=== PATIENT | male | born 1940 | race Caucasian/White ===

== ENCOUNTER 2021-02-12 17:18 | Inpatient (IN) | payer MEDICARE ==
[~2021-02-12] VITALS: Ht 182.9 cm; Wt 86.5 kg
[~2021-02-12 17:18] MED LIST: ASPIRIN 81 LOW81 MG PO; CLEARLAX PO; CRANBERRY125 MG PO; DOXYCYCL HYC100 M4 PO; HYDROXYCHLOR200 M2 PO; MEGARED OMEGA-31 CAP PO; MULTI FOR HIM PO
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
[2021-02-12] MEDS ORDERED: XARELTO10 MG PO (17:33)
[2021-02-12] MEDS ORDERED: FISH OIL500 MG PO (17:33)
[2021-02-12] MEDS ORDERED: IRON325 M1 PO (17:34)
--- NOTE | 2021-02-12 17:40 | NUR ---
AT BEDSIDE FOR LACERATION REPAIR.
--- NOTE | 2021-02-12 18:13 | NUR ---
PT TO CT VIA WC
[2021-02-12 18:25] LABS: IMMATURE GRANULOCYTES 0.7 % (0.0-5.0); MEAN CELL VOLUME 99.8 fL CALC (80.0-100.0); MEAN CORPUSCULAR HGB 32.6 pG CALC (26.0-32.0); MEAN CORPUSCULAR HGB CONC 32.7 g/dL CAL (32.0-36.0); NEUT# 7.31 thou/uL (1.82-7.42); RED BLOOD COUNT 4.29 mill/uL (4.70-6.10); RED CELL DISTRI WIDTH 13.6 % (11.5-15.5)
[2021-02-12 18:32] LABS: HEMATOCRIT 42.8 % (39.0-50.0)
[2021-02-12 18:42] LABS: INTERNATIONAL NORMALIZED RATIO 1.1 RATIO (0.7-1.3); PROTHROMBIN TIME 11.6 SECONDS (9.0-12.5)
[2021-02-12 18:59] LABS: URINE BILIRUBIN - DIPSTICK NEGATIVE (NEGATIVE); URINE BLOOD DIPSTICK LARGE (NEGATIVE); URINE GLUCOSE - DIPSTICK NEGATIVE (NEGATIVE); URINE KETONE NEGATIVE (NEGATIVE); URINE PROTEIN - DIPSTICK 100 mg/dL (NEG-TRACE); URINE SPECIFIC GRAVITY 1.025; URINE UROBILINOGEN - DIPSTICK 0.2 E.U./dL (0.2)
[2021-02-12 19:00] LABS: URINE LEUK ESTERASE MODERATE (NEGATIVE); URINE NITRITE - DIPSTICK POSITIVE (Negative)
[2021-02-12 19:01] LABS: URINE COLOR YELLOW
[2021-02-12 19:06] LABS: URINE BACTERIA MANY hpf; URINE RBC 25-50 RBC/hpf (0-5); URINE SQUAMOUS EPITHELIAL CELL MODERATE EPI/hpf (0-FEW); URINE WBC >100 WBC/hpf (0-5)
[2021-02-12 19:33] LABS: ALBUMIN 4.6 g/dL (3.2-5.0); ALKALINE PHOSPHATASE 70 u/l (38-126); ANION GAP 14 (6-22 (CALC)); BILIRUBIN, TOTAL 0.8 mg/dL (0.0-1.4); BUN 34 mg/dL (8-23); BUN/CREATININE RATIO 25 (12-20 (CALC)); CARBON DIOXIDE 25 mmol/l (22-30); CHLORIDE 104 mmol/l (95-108); CREATININE 1.4 mg/dL (0.7-1.3); GFR 49 ML/MIN (>=60 (CALC)); GFR FOR AFR.AMER. 59 ML/MIN (>=60 (CALC)); POTASSIUM 4.5 mmol/l (3.5-5.1); SGOT/AST 38 u/l (19-48); SODIUM 138 mmol/l (137-146); TOTAL PROTEIN 7.1 g/dL (6.3-8.2)
[2021-02-12 19:44] LABS: MYOGLOBIN 80 ng/mL (0 - 121)
--- NOTE | 2021-02-12 22:00 | NUR ---
REPORT TO LASHON CAMARA
--- NOTE | 2021-02-12 22:10 | NUR ---
ASSUMED CARE. AWAITING ADMISSION. AT BEDSIDE. PT IS ALERT/ORIENTED/PLEASANT. SHOULDER IMMOBILIZER INTACT. CSM + DDI TO HEAD.
--- NOTE | 2021-02-12 22:50 | NUR ---
TO FLOOR VIA W/C WITH NSG USER EXPERIENCE DEVELOPER.
--- NOTE | 2021-02-12 22:50 | NUR ---
PT RECEIVED FROM ED TO ROOM 260. ARRIVES VIA W/C ACCOMPANIED BY SUSANA OATES. PT AMBULATORY TO BED. GAIT UNSTEADY. PT C/O OF LEFT SHOULDER PAIN AT THIS TIME. ORIENTED TO UNIT, ROOM, CALL ALEXANDRE, LIGHTS, TV. ICE WATER PROVIDED. CALL ALEXANDRE WITHIN REACH. AGREES TO CALL PRN.
--- NOTE | 2021-02-12 23:00 | NUR ---
REPORT TO ANDREZ/MED SURG.
[2021-02-12 23:05] VITALS: BP 176/106
--- NOTE | 2021-02-12 23:57 | NUR ---
PHYSICAL ASSESMENT COMPLETE. PT CURRENTLY DENIES PAIN OR DISCOMFORT LONG HIS LEFT SHOULDER REMAINS IMMOBILIZED PT CLAIMS TO BE PAIN FREE. SCHEDULED MEDICATIONS AND PRN MEDICATION ADMINISTERED, SEE E-MAR. PT DENIES ANY NEEDS AT THIS TIME. PLAN OF CARE REVIEWED, PT DENIES QUESTIONS, VERBALIZES UNDERSTANDING. ITEMS WITHIN REACH, BED LOCKED IN LOW POSITION W/ BEDRAILS UP X2. CALL ALEXANDRE WITHIN REACH, AGREES TO CALL PRN.
[2021-02-13 04:00] VITALS: BP 137/85
--- NOTE | 2021-02-13 04:00 | NUR ---
PT RESTING IN BED, NO SIGNS OF DISTRESS NOTED, RESP EVEN AND UNLABORED. PT VOICES NO NEEDS OR COMPLAINTS AT THIS TIME. CALL LIGHT IN REACH, CONTINUE TO MONITOR.
[2021-02-13 08:00] VITALS: BP 154/98
--- NOTE | 2021-02-13 08:00 | NUR ---
PT WAS FOUND RESTING IN BED IN SEMI-MARCELINO'S POSITION;PT IS A&O X3;VS AND ASSESSMENT WERE COMPLETED;HEART SOUNDS ARE REGULAR IN RATE AND RHYTHM;LUNG SOUNDS ARE CLEAR;RESPIRATIONS ARE EVEN AND UNLABORED ON RA;TELE IS IN PLACE;#20G IV IN RAC IS SL, PATENT AND FREE OF COMPLICATIONS;PT HAS A LACERATION LOCATED ON HIS LEFT OCCIPITAL AREA THAT REQUIRED 5 MAKENZIE;DRESSING IN PLACE IS CDI;SAFETY PRECAUTIONS IN PLACE;CALL LIGHT WITHIN REACH;BED IN LOWEST POSITION;WILL CONTINUE TO MONITOR.
--- NOTE | 2021-02-13 10:45 | NUR ---
AND SERENA SNEED AT BEDSIDE DISCUSSING POC
[2021-02-13 10:54] VITALS: BP 107/71
--- NOTE | 2021-02-13 11:38 | NUR ---
Patient is screened for rehab intervention and it is felt that PT and ST consults are indicated if medical agrees
--- NOTE | 2021-02-13 12:00 | NUR ---
PT WAS FOUND EATING LUNCH IN BED;PT IS REPORTING PAIN 7/10 IN LEFT SHOULDER;PT WAS MEDICATED WITH ULTRAM 50MG;TELE IS IN PLACE;#20G IV IN RAC IS RUNNING NS @80ML/HR;IV SITE IS FREE OF COMPLICATIONS;SAFETY PRECAUTIONS IN PLACE;CALL LIGHT WITHIN REACH;BED IN LOWEST POSITION;WILL CONTINUE TO MONITOR.
[2021-02-13 15:00] VITALS: BP 128/76
--- NOTE | 2021-02-13 15:46 | NUR ---
PT WAS FOUND RESTING IN BED;PT REPORTS PAIN IN SHOULDER IS BETTER AFTER MEDICATION;TELE IS IN PLACE;#20G IV IN RAC IS RUNNING NS@80 ML/HR;IV SITE IS FREE OF COMPLICATIONS;SAFETY PRECAUTIONS IN PLACE;CALL LIGHT WITHIN REACH;BED IN LOWEST POSITION;WILL CONTINUE TO MONITOR.
[2021-02-13 19:15] VITALS: BP 145/87
--- NOTE | 2021-02-13 19:58 | NUR ---
PHYSICAL ASSESMENT COMPLETE. PT CURRENTLY DENIES PAIN OR DISCOMFORT. SCHEDULED MEDICATIONS AND PRN MEDICATION ADMINISTERED, SEE E-MAR. PT DENIES ANY NEEDS AT THIS TIME. PLAN OF CARE REVIEWED, PT DENIES QUESTIONS, VERBALIZES UNDERSTANDING. ITEMS WITHIN REACH, BED LOCKED IN LOW POSITION W/ BEDRAILS UP X2. CALL ALEXANDRE WITHIN REACH, AGREES TO CALL PRN.
[2021-02-14 00:03] VITALS: BP 155/88
--- NOTE | 2021-02-14 00:04 | NUR ---
PT LAYING IN BED WITH EYES CLOSED, APPEARS TO BE SLEEPING, APPEARS COMFORTABLE AND IN NO DISTRESS. RESPIRATIONS REGULAR AND UNLABORED. ITEMS REMAIN WITHIN REACH, CALL ALEXANDRE REMAINS WITHIN REACH. BED REMAINS LOCKED AND IN LOW POSITION WITH BEDRAILS UP X2. WILL CONTINUE TO MONITOR.
[2021-02-14 04:47] VITALS: BP 151/75
[2021-02-14 05:19] LABS: HEMATOCRIT 40.2 % (39.0-50.0); HEMOGLOBIN 12.7 g/dl (14.0-18.0); MEAN CELL VOLUME 104.4 fL CALC (80.0-100.0); MEAN CORPUSCULAR HGB CONC 31.6 g/dL CAL (32.0-36.0); RED BLOOD COUNT 3.85 mill/uL (4.70-6.10); RED CELL DISTRI WIDTH 13.6 % (11.5-15.5)
[2021-02-14 05:41] LABS: ALBUMIN 3.8 g/dL (3.2-5.0); ALKALINE PHOSPHATASE 81 u/l (38-126); ANION GAP 14 (6-22 (CALC)); BUN 24 mg/dL (8-23); BUN/CREATININE RATIO 24 (12-20 (CALC)); CHLORIDE 110 mmol/l (95-108); GFR > 60 ML/MIN (>=60 (CALC)); GFR FOR AFR.AMER. > 60 ML/MIN (>=60 (CALC)); POTASSIUM 4.4 mmol/l (3.5-5.1); SGOT/AST 34 u/l (19-48); SODIUM 137 mmol/l (137-146); TOTAL PROTEIN 6.2 g/dL (6.3-8.2)
[2021-02-14 05:43] LABS: CARBON DIOXIDE 17 mmol/l (22-30)
--- NOTE | 2021-02-14 07:00 | NUR ---
PT REPORT RECEIVED FROM NIGHT NURSEANDREZ.
[2021-02-14 08:00] VITALS: BP 144/85
--- NOTE | 2021-02-14 08:00 | NUR ---
PT WAS FOUND RESTING IN BED;PT IS A&O X3;VS AND ASSESSMENT WERE COMPLETED; HEART SOUNDS ARE IRREGULAR IN RATE AND RHYTHM;LUNG SOUNDS ARE CLEAR;RESPIRATIONS ARE EVEN AND UNLABORED ON RA#20G IV IN RAC IS RUNNING NS @80ML/HR;PT REPORTED SOME TENDERNESS IN THE IV SITE;IV SITE WAS FOUND TO BE INFILTRATED;IV FLUIDS WERE STOPPED AND IV REMOVED;PT WILL HAVE PICC LINE PLACED TODAY FOR CONTINUATION OF IV FLUIDS AND ANTIBIOTICS;TELE IS IN PLACE;SAFETY PRECAUTIONS IN PLACE;CALL LIGHT WITHIN REACH;BED IN LOWEST POSITION;WILL CONTINUE TO MONITOR.
--- NOTE | 2021-02-14 08:56 | NUR ---
AND MELINDA SNEED ARE AT BEDSIDE DISCUSSING POC WITH PT
--- NOTE | 2021-02-14 09:47 | NUR ---
PT WAS TRANSPORTED VIA WHEELCHAIR TO RADIOLOGY FOR PICC LINE INSERTION;JOAQUIN HELD IN ANTICIPATION OF PROCEDURE.
--- NOTE | 2021-02-14 10:30 | NUR ---
PT RETURNED FROM RADIOLOGY VIA WHEELCHAIR ACCOMPANIED BY STAFF
[2021-02-14 10:54] VITALS: BP 156/83
--- NOTE | 2021-02-14 12:00 | NUR ---
PT WAS FOUND SITTING IN BED EATING LUNCH;PT REPORTS NO PAIN AT THIS TIME;TELE IS IN PLACE;PICC LINE IN RIGHT UPPER FOREARM IS RUNNING MAXIPIME AT THIS TIME; SITE FLUSHES WELL WITH NO ISSUES OR COMPLICATIONS;SAFETY PRECAUTIONS IN PLACE;CALL LIGHT WITHIN REACH;BED IN LOWEST POSITION;WILL CONTINUE TO MONITOR.
--- NOTE | 2021-02-14 14:26 | NUR ---
BED ALARM PLACED FOR SAFETY PRECAUTIONS. CALL LIGHT LEFT WITHIN REACH.
[2021-02-14 15:10] VITALS: BP 150/79
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
[2021-02-14 19:00] VITALS: BP 135/67
--- NOTE | 2021-02-14 19:19 | NUR ---
RECEIVED REPORT FROM NURSE VICENTE PATIENT IS RESTING IN BED,WATCHING TV, BREATHING UNLABORED CALL LIGHT AT REACH.
--- NOTE | 2021-02-14 19:50 | NUR ---
PATIENT RESTING IN BED WATCHING TV, WITH ONGOING IV NS @ 80CC/HR INFUSING WELL ON DENNIS, REMAINS ON TELE AFIB 76, DENIES DIZINESS, BREATHING EVEN AND UNLABORED, PATIENT HAS A LEFT ARM SLING. DENIES PAIN AT THIS TIME STATED THAT NON IN PAIN IF ARM IS STEADY, DENIES PAIN OR BURNING ON URINATION. BED ALARM IN PLACE CALL LIGHT AT REACH.
[2021-02-15] VITALS (10 sets, daily range): BP systolic 136–183; BP diastolic 63–110
--- NOTE | 2021-02-15 00:30 | NUR ---
PATIENT APPEARS TO BE SLEEPING WITH EYES CLOSED, BREATHING EVEN UNLABORED CALL LIGHT AT REACH.
--- NOTE | 2021-02-15 03:05 | NUR ---
PATIENT ASSISTED TO THE BATHROOM, DENEIS PAIN AT THIS TIME, BREATHING UNLABORED CALL LIGHT AT REACH.
[2021-02-15 05:44] LABS: BUN 22 mg/dL (8-23); BUN/CREATININE RATIO 19 (12-20 (CALC)); CHLORIDE 107 mmol/l (95-108); CREATININE 1.2 mg/dL (0.7-1.3); GFR 58 ML/MIN (>=60 (CALC)); GFR FOR AFR.AMER. > 60 ML/MIN (>=60 (CALC)); POTASSIUM 3.9 mmol/l (3.5-5.1); SODIUM 138 mmol/l (137-146)
[2021-02-15 05:49] LABS: HEMATOCRIT 35.4 % (39.0-50.0); HEMOGLOBIN 11.5 g/dl (14.0-18.0); MEAN CELL VOLUME 99.7 fL CALC (80.0-100.0); MEAN CORPUSCULAR HGB 32.4 pG CALC (26.0-32.0); MEAN CORPUSCULAR HGB CONC 32.5 g/dL CAL (32.0-36.0); RED BLOOD COUNT 3.55 mill/uL (4.70-6.10); RED CELL DISTRI WIDTH 13.5 % (11.5-15.5)
[2021-02-15 06:03] LABS: ANION GAP 9 (6-22 (CALC)); CARBON DIOXIDE 26 mmol/l (22-30)
--- NOTE | 2021-02-15 07:00 | NUR ---
RECIEVED REPORT FROM LASHON WAYNE.
--- NOTE | 2021-02-15 07:49 | NUR ---
PT RESTING IN SEMI FOWLERS POSITION. PT IS A/O X3 WITH SOME REPORTED CONFUSION. ASESSMENT AND VITALS COMPLETED.REPSIRATIONS ARE EVEN AND UNLABORED WITH NO DISTRESS NOTED ON ROOM AIR. LUNG SOUNDS CLEAR. HEART RHYTHM IRREGULAR WITH TELE IN PLACE AFIB PER ER MONITORING. BOWEL SOUNDS ARE ACTIVE. RADIAL AND PEDAL PULSES STRONG. DENNIS PICC INFUSING WITH IVF PER ORDERM SITE APPEARS HEALTHY AND PATENT.LEFT ARM IN SLING. PT COMPLAINS OF PAIN WHEN MOVING LEFT ARM BUT REFUSES PAIN MEDICATION. LEFT SCALP LACTERATION NOTED. PT DENIES OF ANY NEEDS AT THIS TIME. ALL SAFETY PRECAUTIONS ARE IN PLACE WITH CALL LIGHT IN REACH. WILL CONTINUE TO MONITOR.
--- NOTE | 2021-02-15 08:40 | NUR ---
DR LEVIN AT BEDSIDE
--- NOTE | 2021-02-15 09:00 | NUR ---
PT NOTE Patient supine as entered room, agreed to participate in therapy session. Initiated session w/ passive range of motion to left upper extremity in supine positioning into abduction and flexion. patient able to achieve to about 90drg of range with out increased pain. progressed to sit>stand to execute standing exercises(independant w/ bed raised). patient executed scapular retractions, pendulums and table slides to patient comfort. Stand>sit (independant). Patient had no qiestions or concerns about home exercises he performed. [facility] - home
--- NOTE | 2021-02-15 10:13 | NUR ---
DR CARLOS JIMENEZ VIA [employer]
--- NOTE | 2021-02-15 10:20 | NUR ---
ORTHOSTATIC BP COMPLETED. LAYING BP 150/90, HR 69. SITTING 183/110, HR 70, STANDING 160/98, HR 70. PT STATES " I FEEL FINE." PT ASSISTED BACK INTO BED. RESPIRATIONS ARE EVEN AND UNLABORED WITH NO DISTRESS NOTED. PT DENIES OF ANY NEEDS AT THIS TIME. ALL SAFETY PRECAUTIONS REMAINS IN PLACE. WILL CONTINUE TO MONITOR.
[2021-02-15] MEDS ORDERED: MAXIPIME1 GM IV (12:16)
--- NOTE | 2021-02-15 12:24 | NUR ---
REPORTED BP OF 183/93. MILADYS LEDEZMA NOTIFIED. RESIRAATIONS REMAINS EVEN AND UNLABORED WITH NO DISTRESS NOTED. DENNIS PICC REMAINS IN PLACE, SITE REMAINS HEALTHY AND PATENT. TELE MONITORING IN PLACE. PT DENIES OF ANY PAINS OR DISCOMFORTS. ALL SAFETY PRECAUTIONS ARE IN PLACE. WILL CONTINUE TO MONITOR.
--- NOTE | 2021-02-15 12:37 | NUR ---
WRITTER INFORMED THAT PT WILL NOT BE DISCHARGED TODAY. PT AND NOTFIED.
--- NOTE | 2021-02-15 14:02 | NUR ---
NORVASC ADMINISTERED FOR ELEVTAED BP
--- NOTE | 2021-02-15 16:13 | NUR ---
PT RESTING IN SEMI FOWLERS POSITION. PT IS A/O X3. REPSIRATIONS ARE EVEN AND UNLABORED WITH NO DISTRESS NOTED ON ROOM AIR. DENNIS PICC INFUSING WITH IVF PER ORDERM, SITE APPEARS HEALTHY AND PATENT. TELE MONITORING IN PLACE. PT DENIES OF ANY PAINS OR DISCOMFORTS AT THIS TIME. ALL SAFETY PRECAUTIONSA RE IN PLACE WITH CALL LIGHT IN REACH. WILL CONTINUE TO MONITOR.
--- NOTE | 2021-02-15 19:50 | NUR ---
PATIENT RESTING IN BED AT THIS TIME-EYES ARE CLOSED. RESPS ARE EVEN AND UNLABORED. APPEARS SLEEPING AT THIS TIME. IVF NS PATENT AND INFUSING VIA RIGHT UPPER ARM PICC AT 80CC/HR. SITE APPEARS HEALTHY AT THIS TIME. CALL LIGHT IN REACH. WILL CONT TO MONITOR.
--- NOTE | 2021-02-15 21:24 | NUR ---
PATIENT REARING IN BED AT THIS TIME-AWAKE ALERT AND ORIENTEDX3. PATIENT WITH IVF PATENT AND INFUSING VIA RIGHT UPPER ARM PICC AT 80CC/HR. MAXIPIME HUNG ORDERED. TELE MONITOR IN PLACE. SLING APPLIED TO LEFT ARM ORDERED. CMS TO LEFT FINGERS ARE WNL. PAIN MEDICATTION OFFERED BUT PATIENT DECLINED AT THIS TIME. MAKENZIE TO HEAD INTACT AND TEXTILE BAG SEWER. OFFERED HS SNACK BUT PATIENT DECLINED AT THIS TIME. SAFETY PRECAUTIONS REINFORCED. CALL LIGHT IN REACH. WILL CONT TO MONITOR.
[2021-02-16 00:13] VITALS: BP 127/74
--- NOTE | 2021-02-16 01:33 | NUR ---
PATIENT ASSISTED UP TO THE BR FOR BM. PATIENT IS ALSO VOIDING QS YELLOW URINE. ASSISTED BACK TO BED. PATIENT WITH SLING TO LEFT ARM REMAINING IN PLACE. CMS TO LEFT FINGERS WNL. IVF NS PATENT AND INFUSING VIA RIGHT U PPER ARM PICC AT 80CC/HR. TELE MONITOR REMAINS IN PLACE. SAFETY PRECAUTIONS REINFORCED. CALL LIGHT IN REACH. WILL CONT TO MONITOR.
[2021-02-16 04:39] VITALS: BP 142/80
--- NOTE | 2021-02-16 05:00 | NUR ---
PATIENT RESTING IN BED-APPEARS SLEEPING WITH EYES CLOSED. RESPS ARE EVEN AND UNLABORED. LAB WORK DRAWN FROM RIGHT UPPER ARM PICC WITHOUT DIFFICULTY-GOOD BLOOD RETURN. FLUSHED WITH SALINE AND HEP SOLUTION PER PROTOCOL. IVF NS PATENT AND INFUSING AT 80CC/HR. SAFETY PRECAUTION REINFORCED. CALL LIGHT IN REACH. WILL CONT TO MONITOR.
[2021-02-16 05:42] LABS: HEMATOCRIT 34.1 % (39.0-50.0); HEMOGLOBIN 11.2 g/dl (14.0-18.0); MEAN CELL VOLUME 100.3 fL CALC (80.0-100.0); MEAN CORPUSCULAR HGB 32.9 pG CALC (26.0-32.0); MEAN CORPUSCULAR HGB CONC 32.8 g/dL CAL (32.0-36.0); RED BLOOD COUNT 3.4 mill/uL (4.70-6.10); RED CELL DISTRI WIDTH 13.4 % (11.5-15.5)
[2021-02-16 06:02] LABS: ANION GAP 10 (6-22 (CALC)); BUN 20 mg/dL (8-23); BUN/CREATININE RATIO 19 (12-20 (CALC)); CARBON DIOXIDE 25 mmol/l (22-30); CHLORIDE 107 mmol/l (95-108); CREATININE 1.1 mg/dL (0.7-1.3); GFR > 60 ML/MIN (>=60 (CALC)); GFR FOR AFR.AMER. > 60 ML/MIN (>=60 (CALC)); POTASSIUM 3.8 mmol/l (3.5-5.1); SODIUM 138 mmol/l (137-146)
--- NOTE | 2021-02-16 07:00 | NUR ---
RECIEVED REPORT FROM LASHON JIMENEZ
[2021-02-16 07:15] VITALS: BP 155/87
--- NOTE | 2021-02-16 07:42 | NUR ---
PT SITTING UP IN CHAIR. PT IS A/O X3 WITH SOME REPORTED CONFUSION.ASSESSMENT AND VITALS OBATINED. BP 155/87, HR 87, O2 97% ON ROOM AIR. RESPIRATIONS ARE EVEN AND UNLABORED WITH NO DISTRESS NOTED. LUNG SOUNDS ARE CLEAR. HEART RHYTHM IS NORMAL WITH TELE IN PLACE. BOWEL SOUNDS ARE ACTIVE. RADIAL AND PEDAL PULSES ARE STRONG. DENNIS PICC INFUSING WITH IVF PER ORDER, SITE REMAINS HEALTHY AND PATENT. SKIN IS COOL AND DRY. 5 MAKENZIE NOTED ON LEFT SCALP. LEFT ARM IN SLING, ADJUSTED FOR PT COMFORT. PT COMPLAINS OF SOME DISCOMFORT IN LEFT SHOULDER BUT REFUSES PAIN MEDICATION. PT DENIES OF ANY OTHER NEEDS AT THIS TIME. ALL SAFETY PRECAUTIONS ARE IN PLACE WITH CALL LIGHT IN REACH. ENCOURAGED PT TO CALL FOR ASSISTANCE. WILL CONTINUE TO MONITOR.
--- NOTE | 2021-02-16 08:39 | NUR ---
MORNING MEDS ADMNISTERED. PT TOLERATED WELL. PT REQUEST FOR PAIN PILL AT THIS TIME, ULTRAM ADMINISTERED. PT DENEIS OF ANY OTHER NEEDS. ALL SAFETY PRECAUTIONS IN PLACE. WILL CONTINUE TO MONITOR.
--- NOTE | 2021-02-16 09:07 | NUR ---
DR VALE AT BEDSIDE.
[2021-02-16] MEDS ORDERED: AMLODIPINE BESYL5 MG PO (10:21)
[2021-02-16 10:23] VITALS: BP 146/76
[2021-02-16] MEDS ORDERED: ULTRAM50 M1 PO (10:24)
[2021-02-16 10:25] VITALS: BP 146/76
--- NOTE | 2021-02-16 11:38 | NUR ---
PT REQUEST TO SHOWER BEFORE BEING DISCHARGED. PT SET UP FOR SHOWER. PT ASSSISTED TO SHOWER. ALL SAFETY PRECAUTIONS ARE IN PLACE, ENCOURAGED PT TO CALL FOR ASSISTNACE. WILL CONTINUE TO MONITOR.
--- NOTE | 2021-02-16 13:02 | NUR ---
Discharge instructions given. Patient verbalizes understanding of same. Discharged in stable condition via Wheelchair to Home with staff. All belongings sent with pt. PT DISCHARGED HOME VIA WHEELCHAIR IN STABLE CONDITION ACCOMPAINED BY STAFF AND SPOUSE IN STABLE CONDITION WITH ALL DISCHARGE INSTRUCTIONS AND BELONGINGS. [facility] PICC REMAINS IN PLACE.
== END 2021-02-16 13:03 | DRG 690 ==
LOC: ED 17:18 → ED-I 21:10 → ED 22:27 → MS2 22:28
PROVIDERS: Emergency Medicine; Nurse Practitioner; Nurse Practitioner Family; ADMIT Internal Medicine; ATTEND Internal Medicine
PROC: 0HQ0XZZ Repair Scalp Skin, External Approach (ICD-10-PCS; principal; 2021-02-12)
PROC: 02HV33Z Insertion of Infusion Device into Superior Vena Cava, Percutaneous Approach (ICD-10-PCS; 2021-02-14)
PROC: B518ZZA Fluoroscopy of Superior Vena Cava, Guidance (ICD-10-PCS; 2021-02-14)
DX: N39.0 Urinary tract infection, site not specified (principal); C85.90 Non-Hodgkin lymphoma, unspecified, unspecified site; I10 Essential (primary) hypertension; E86.0 Dehydration; I48.91 Unspecified atrial fibrillation; S43.112A Subluxation of left acromioclavicular joint, initial encounter; S01.01XA Laceration without foreign body of scalp, initial encounter; R41.0 Disorientation, unspecified; B96.5 Pseudomonas (aeruginosa) (mallei) (pseudomallei) as the cause of diseases classified elsewhere; W18.30XA Fall on same level, unspecified, initial encounter; Y92.009 Unspecified place in unspecified non-institutional (private) residence as the place of occurrence of the external cause; Z79.01 Long term (current) use of anticoagulants; Z87.440 Personal history of urinary (tract) infections; Z92.21 Personal history of antineoplastic chemotherapy; Z86.73 Personal history of transient ischemic attack (TIA), and cerebral infarction without residual deficits; Z20.822 Contact with and (suspected) exposure to COVID-19
CPT/HCPCS: G0378; J0692; Q3014

== ENCOUNTER 2021-12-15 12:26 | Emergency (ER) | payer MEDICARE ==
[~2021-12-15] VITALS: Ht 182.9 cm; Wt 88.0 kg
[~2021-12-15 12:26] MED LIST changes: +AMLODIPINE BESYL5 MG PO; +FISH OIL500 MG PO; +IRON325 M1 PO; +MAXIPIME1 GM IV; +ULTRAM50 M1 PO; +XARELTO10 MG PO
[2021-12-15] MEDS ORDERED: MAXZIDE-2537.5 MG/TA PO (15:15)
[2021-12-15 17:49] LABS: HEMATOCRIT 43.9 % (39.0-50.0); HEMOGLOBIN 14.8 g/dl (14.0-18.0); IMMATURE GRANULOCYTES 0.2 % (0.0-5.0); MEAN CELL VOLUME 100.9 fL CALC (80.0-100.0); MEAN CORPUSCULAR HGB CONC 33.7 g/dL CAL (32.0-36.0); NEUT# 3.73 thou/uL (1.82-7.42); RED BLOOD COUNT 4.35 mill/uL (4.70-6.10); RED CELL DISTRI WIDTH 12.9 % (11.5-15.5)
[2021-12-15 18:11] LABS: ANION GAP 12 (6-22 (CALC)); BUN 23 mg/dL (8-23); BUN/CREATININE RATIO 20 (12-20 (CALC)); CARBON DIOXIDE 29 mmol/l (22-30); CHLORIDE 104 mmol/l (95-108); CREATININE 1.2 mg/dL (0.7-1.3); GFR 58 ML/MIN (>=60 (CALC)); GFR FOR AFR.AMER. > 60 ML/MIN (>=60 (CALC)); POTASSIUM 4.2 mmol/l (3.5-5.1); SODIUM 141 mmol/l (137-146)
[2021-12-15 18:25] VITALS: BP 176/82
== END 2021-12-15 19:01 | disposition home or self-care (01) ==
LOC: ED 12:26
PROVIDERS: Family Medicine
DX: I10 Essential (primary) hypertension (principal); Z86.73 Personal history of transient ischemic attack (TIA), and cerebral infarction without residual deficits

== ENCOUNTER 2022-12-29 10:13 | Emergency (ER) | payer MEDICARE ==
[~2022-12-29] VITALS: Ht 182.9 cm; Wt 88.4 kg
[~2022-12-29 10:13] MED LIST changes: +MAXZIDE-2537.5 MG/TA PO
[2022-12-29 10:24] VITALS: BP 131/87
[2022-12-29 10:31] VITALS: BP 155/91
[2022-12-29] MEDS ORDERED: NAPROXEN500 MG PO (12:45)
[2022-12-29] MEDS ORDERED: TRAMADOL HYDROC50 M1 PO (12:45)
[2022-12-29 12:59] VITALS: BP 155/91
== END 2022-12-29 13:08 | disposition home or self-care (01) ==
LOC: ED 10:13
DX: M54.50 Low back pain, unspecified (principal); M51.36 Other intervertebral disc degeneration, lumbar region; I10 Essential (primary) hypertension; Z86.73 Personal history of transient ischemic attack (TIA), and cerebral infarction without residual deficits

== ENCOUNTER 2025-01-08 02:06 | Observation (INO) | payer MEDICARE ==
[2025-01-08] VITALS (16 sets, daily range): BP systolic 130–164; BP diastolic 73–93
[~2025-01-08] VITALS: Ht 182.9 cm; Wt 90.9 kg
[~2025-01-08 02:06] MED LIST changes: +CIPROFLOXACN500 MG PO; +NAPROXEN500 MG PO; +OMNICEF300 MG PO; +TRAMADOL HYDROC50 M1 PO
[2025-01-08] MEDS ORDERED: hydrALAZINE HCL 20 MG/ML VIAL(1 ML) IV ONE ×2 (02:15→02:20)
[2025-01-08 02:26] LABS: BASO% 0.9 % (0-3); EOS% 3.6 % (0-8); HEMATOCRIT 40.7 % (39.0-50.0); HEMOGLOBIN 13.4 g/dl (14.0-18.0); IMMATURE GRANULOCYTES 0.2 % (0.0-5.0); LYMPH% 14.3 % (15-41); MEAN CELL VOLUME 99.8 fL CALC (80.0-100.0); MEAN CORPUSCULAR HGB 32.8 pG CALC (26.0-32.0); MEAN CORPUSCULAR HGB CONC 32.9 g/dL CAL (32.0-36.0); MONO% 14.9 % (2-13); NEUT# 2.97 thou/uL (1.82-7.42); NEUT% 66.1 % (42-76); RED BLOOD COUNT 4.08 mill/uL (4.70-6.10); RED CELL DISTRI WIDTH 14.4 % (11.5-15.5)
--- NOTE | 2025-01-08 02:28 | NUR ---
PT MEDICATED PER MD ORDERS. PT / PT FAMILY UPDATED ON POC, PT AWAITNG FOR LAB RESULTS AT THIS TIME AND CT SCAN/CXR. PT / PT FAMILY VOICES UNDERSTANDING WITH NO FURTHER QUESTIONS OR CONCERNS.
[2025-01-08 02:42] LABS: ALBUMIN 4.1 g/dL (3.2-5.0); ALKALINE PHOSPHATASE 52 u/l (38-126); ANION GAP 11 (6-22 (CALC)); BILIRUBIN, TOTAL 1.2 mg/dL (0.2-1.3); BUN 26 mg/dL (8-23); BUN/CREATININE RATIO 18 (12-20 (CALC)); CARBON DIOXIDE 25 mmol/l (22-30); CHLORIDE 106 mmol/l (95-108); CPK 39 u/l (55-170); CREATININE 1.5 mg/dL (0.7-1.3); ESTIMATED GFR 45 ML/MIN (>=90 (CALC)); ETHYL ALCOHOL 0 mg/dl (0-30); LIPASE 44 u/l (23-300); MAGNESIUM 2.3 mg/dL (1.6-2.3); POTASSIUM 3.8 mmol/l (3.5-5.1); SGOT/AST 27 u/l (19-48); SODIUM 138 mmol/l (137-146); TOTAL PROTEIN 6.2 g/dL (6.3-8.2)
--- NOTE | 2025-01-08 03:24 | NUR ---
PT / PT FAMILY UPDATED ON POC, PT AWAITING FOR RAD AND LAB RESULTS AT THIS TIME. PT / PT FAMILY VOICE UNDERSTANDING WITH NO FURTHER QUESTIONS OR CONCERNS. PT CALL LIGHT WITHIN REACH.
[2025-01-08] MEDS ORDERED: PEPCID40 MG PO (03:40)
[2025-01-08] MEDS ORDERED: LATANOPROST0.005 % OD (03:40)
[2025-01-08 04:05] LABS: URINE BILIRUBIN - DIPSTICK Negative (NEGATIVE); URINE GLUCOSE - DIPSTICK Negative (NEGATIVE); URINE KETONE Negative (NEGATIVE); URINE PH 5.5 (4.5-8.0); URINE PROTEIN - DIPSTICK Negative (NEG-TRACE); URINE SPECIFIC GRAVITY <=1.005; URINE UROBILINOGEN - DIPSTICK 0.2 E.U./dL (0.2)
[2025-01-08 04:08] LABS: URINE BLOOD DIPSTICK Negative (NEGATIVE); URINE COLOR Yellow; URINE LEUK ESTERASE Small (NEGATIVE); URINE NITRITE - DIPSTICK Positive (Negative)
[2025-01-08 04:11] LABS: URINE BACTERIA MODERATE hpf; URINE EPITHELIAL CELLS MODERATE EPI/hpf (0-FEW)
--- NOTE | 2025-01-08 06:00 | NUR ---
PATIENTS REPORTS REPORTS PATIENT HAS RESPOSNDED POSITIVELY TO DOXYCICLINE, ASKED EDP IF HE WOULD LIKE BLOOD CULTURES PRIOR TO ABX TREATMENT AND EDP STATES NO. ONLY URINE.
[2025-01-08] MEDS ORDERED: ONDANSETRON HCl 4 MG/2 ML SDV IV PRN (06:55)
[2025-01-08] MEDS ORDERED: IBUPROFEN 800 MG/TAB PO PRN (06:55)
[2025-01-08] MEDS ORDERED: Polyethylene Glycol 3350 17 GM/PKT PO PRN (06:55)
[2025-01-08] MEDS ORDERED: FAMOTIDINE 10MG/ML 2ML SDV IV PRN (06:55)
[2025-01-08] MEDS ORDERED: ALUM & MAG HYDROX-SIMETHICONE 30 ML PO PRN (06:55)
[2025-01-08] MEDS ORDERED: ONDANSETRON 4 MG/TAB ODT PO PRN (06:55)
--- NOTE | 2025-01-08 07:00 | NUR ---
REPORT RECEIVED FROM ROBLES OATES
[2025-01-08] MEDS ORDERED: XARELTO20 MG PO (07:52)
[2025-01-08] MEDS ORDERED: DOXYCYCLINE HYCLATE 100 MG in SODIUM CHLORIDE 0.9% 100 ML IV SCH (08:00)
[2025-01-08 08:07] LABS: BASO% 0.4 % (0-3); EOS% 2.1 % (0-8); HEMATOCRIT 42.2 % (39.0-50.0); HEMOGLOBIN 14.1 g/dl (14.0-18.0); IMMATURE GRANULOCYTES 0.2 % (0.0-5.0); LYMPH% 10.6 % (15-41); MEAN CELL VOLUME 98.1 fL CALC (80.0-100.0); MEAN CORPUSCULAR HGB 32.8 pG CALC (26.0-32.0); MEAN CORPUSCULAR HGB CONC 33.4 g/dL CAL (32.0-36.0); MONO% 12.9 % (2-13); NEUT# 3.49 thou/uL (1.82-7.42); NEUT% 73.8 % (42-76); RED BLOOD COUNT 4.3 mill/uL (4.70-6.10); RED CELL DISTRI WIDTH 14.3 % (11.5-15.5)
--- NOTE | 2025-01-08 08:16 | NUR ---
REPORT CALLED TO KAREN OATES
--- NOTE | 2025-01-08 08:52 | NUR ---
TO MED SURG VIA WHEELCHAIR. TELE MONITOR #[address], ACCOMPANIED BY . ALL PERSONAL BELONGINGS WITH PT
[2025-01-08] MEDS ORDERED: FAMOTIDINE 20 MG/TAB PO SCH (09:00)
--- NOTE | 2025-01-08 09:35 | NUR ---
PT IS ADMITTED TO MED SURG FOR WEAKNESS, POSSIBLE FALL, AND A REOCCURING UTI. PT IS A&O X3 AT THIS TIME BUT CAN BECOME CONFUSED AT NIGHT. , MARAH ([phone]) IS AT BEDSIDE. PT IS STABLE. PT IS ON TELE; PACED WITH [employer] MICRO IN THE L VENTRICLE. PT IS NOT ON OXYGEN. PT CAN MOVE ALL EXTREMITES BUT IS SLIGHTLY WEAK; X1 OOB. PLAN OF CARE WAS REVIEWED; NO FURTHER QUESTIONS AT THIS TIME. BED ALARM IS ON; CALL LIGHT IS WITHIN REACH.
[2025-01-08] MEDS ORDERED: SODIUM CHLORIDE 0.9% 1,000 ML IV PRN (10:10)
--- NOTE | 2025-01-08 12:00 | NUR ---
PT'S CONDITION REMAINS THE SAME. PT IS EATING LUNCH COMFORTABLY. BED ALARM IS ON; CALL LIGHT WITHIN REACH.
[2025-01-08] MEDS ORDERED: amLODIPine BESYLATE 5 MG/TAB PO SCH (14:30)
--- NOTE | 2025-01-08 16:00 | NUR ---
PT COMPLAINS OF A LITTLE HEADACHE; WILL MEDICATE. PT IS STILL A&O X3 AND STABLE. BED ALARM IS ON; CALL LIGHT IS WITHIN REACH.
[2025-01-08] MEDS ORDERED: RIVAROXABAN 20 MG TAB PO SCH (17:00)
--- NOTE | 2025-01-08 19:22 | NUR ---
PATIENT OBSERVED TO BE RESTING IN BED AWAKE WATCHING TV. BEDSIDE ASSESSMENT COMPLETE. PATIENT CAN MAKE NEEDS KNOWN, NONE NEEDED AT THIS TIME. NO COMPLAINTS OF PAIN AT THIS TIME. RESP EVEN AND UNLABORED, NO VISUAL SIGNS OF DISTRESS. IV SITE CLEAN AND INTACT. BOWEL SOUNDS IN ALL 4 QUADRENTS. PATIENT OBSERVED TO HAVE LOWER LEGS EDEMA PITTING +1. BRD AT LOWEST POSITION. CALL LIGHT WITH IN REACH.
[2025-01-08] MEDS ORDERED: LATANOPROST 2.5 ML BTL OU SCH (21:00)
[2025-01-09] VITALS (9 sets, daily range): BP systolic 126–157; BP diastolic 60–98
--- NOTE | 2025-01-09 00:36 | NUR ---
PATIENT OBSERVED TO BE RESTING IN BED. PATIENT RESPONDS TO VERBAL STIMULI. NO COMPLAINTS OF PAIN AT THIS TIME. EQUAL UNLABORED RESP. NO VISUAL SIGNS OF DISTREAA. BED AT LOWEST POSITION. CALL LIGHT WITH IN REACH.
--- NOTE | 2025-01-09 04:20 | NUR ---
PATIENT OBSERVED TO BE SITTING ON SIDE OF BED. PATIENT OBSERVED TO BE REMOVING TELE BOX. I ASKED PATIENT WHATS GOING ON. PATIENT STATED" WHERE AM I." I SAID YOU ARE AT THE HOSPITAL. PATIENT STATED" WELL IM TRYING TO GET OUT OF HERE". PATIENT OBSERVED TO BE TRYING TO GET UP. I REDIRECTED PATIENT TO LAY DOWN AND TO WAIT TO SEE THE DR. PATIENT STATED" OK FINE". BED AT LOWEST POSITION. CALL LIGHT WITH IN REACH.
[2025-01-09 05:40] LABS: BASO% 0.4 % (0-3); EOS% 2.1 % (0-8); HEMATOCRIT 40.6 % (39.0-50.0); HEMOGLOBIN 13.8 g/dl (14.0-18.0); IMMATURE GRANULOCYTES 0.2 % (0.0-5.0); LYMPH% 12.8 % (15-41); MEAN CELL VOLUME 99.3 fL CALC (80.0-100.0); MEAN CORPUSCULAR HGB 33.7 pG CALC (26.0-32.0); MONO% 12.6 % (2-13); NEUT# 3.43 thou/uL (1.82-7.42); NEUT% 71.9 % (42-76); RED BLOOD COUNT 4.09 mill/uL (4.70-6.10); RED CELL DISTRI WIDTH 14.2 % (11.5-15.5)
[2025-01-09 05:48] LABS: ALBUMIN 3.8 g/dL (3.2-5.0); CREATININE 1.2 mg/dL (0.7-1.3); MAGNESIUM 2.2 mg/dL (1.6-2.3); TOTAL PROTEIN 5.7 g/dL (6.3-8.2)
--- NOTE | 2025-01-09 07:45 | NUR ---
PT WAS FOUND CONFUSED AT BEDSIDE. STATES THIS ISNT ABNORMAL FOR HIM. PATIENT IS STABLE AND AWAITING BREAKFAST. PT IS ABLE TO MOVE ALL EXTREMITES; X1 OOB FOR WEAKNESS. PLAN OF CARE WAS REVIEWED WITH PT; NO FURTHER QUESTIONS AT THIS TIME. CALL LIGHT IS WITHIN REACH AND BED ALARM IS ON.
--- NOTE | 2025-01-09 12:00 | NUR ---
PT'S CONDITION REMAINS THE SAME; STILL SOMEWHAT DISORIENTED. IS AT BEDSIDE. BED ALARM IS ON; CALL LIGHT IS WITHIN REACH.
--- NOTE | 2025-01-09 15:00 | NUR ---
PT'S CONDITION REMAINS THE SAME. REMAINS AT BEDSIDE. BED ALARM IS ON; CALL LIGHT WITHIN REACH.
--- NOTE | 2025-01-09 20:00 | NUR ---
RECEIVED REPORT FROM NURSE KAREN, PATIENT RESTING IN BED, PATIENT CONFUSED, ALERT ONLY TO NAME AND BIRTHDAY,PATIENT STATED THAT HE IS AT THE [facility], PATIENT SETS OF BED ALARM FREQUENTLY, GAIT UNSTEADY, PATIENT DOES NOT USE CALL LIGHT, EDUCATED, PATIENT ONGOING IV ON LAC G 20 NS @ 100CC/HR INFUSING WELL, PATIENT ASSISTED TO THE BEDSIDE COMODE VOIDED AND ASSISTED BACK IN BED, SAFETY PRECAUTION IN PLACED, CALL LIGHT WITHIN REACHED.
[2025-01-09] MEDS ORDERED: Zaleplon 5 MG/CAP PO PRN (22:05)
[2025-01-09] MEDS ORDERED: QUEtiapine FUMERATE 25 MG/TAB PO SCH (22:14)
--- NOTE | 2025-01-10 | NUR ---
PATIENT RESTING IN BED, BREATGHING EVEN UNALBORED, NOT IN DISTRESS, SAFETY PRECAUTION IN PLACED.
[2025-01-10 01:02] VITALS: BP 130/71
--- NOTE | 2025-01-10 03:34 | NUR ---
PATIENT RSETING IN BED, EYES CLOSED, BREATHING EVEN UNALBORED, NO DISCOMFORTS NOTED AT THSI TIME, BED ALARM IN PLACED.
[2025-01-10 04:14] LABS: BASO% 0.7 % (0-3); HEMATOCRIT 38.3 % (39.0-50.0); HEMOGLOBIN 12.7 g/dl (14.0-18.0); IMMATURE GRANULOCYTES 0.2 % (0.0-5.0); LYMPH% 14.3 % (15-41); MEAN CELL VOLUME 100.3 fL CALC (80.0-100.0); MEAN CORPUSCULAR HGB 33.2 pG CALC (26.0-32.0); MEAN CORPUSCULAR HGB CONC 33.2 g/dL CAL (32.0-36.0); MONO% 10.7 % (2-13); NEUT# 2.91 thou/uL (1.82-7.42); NEUT% 69.1 % (42-76); RED BLOOD COUNT 3.82 mill/uL (4.70-6.10); RED CELL DISTRI WIDTH 14.2 % (11.5-15.5)
[2025-01-10 04:29] LABS: ALBUMIN 3.6 g/dL (3.2-5.0); BILIRUBIN, TOTAL 1.1 mg/dL (0.2-1.3); CREATININE 1.1 mg/dL (0.7-1.3); MAGNESIUM 2.1 mg/dL (1.6-2.3); POTASSIUM 3.8 mmol/l (3.5-5.1); TOTAL PROTEIN 5.5 g/dL (6.3-8.2)
[2025-01-10 04:54] VITALS: BP 149/89
[2025-01-10 07:52] VITALS: BP 163/83
--- NOTE | 2025-01-10 08:01 | NUR ---
PATEINT RESTING IN BED SLEEPING SHOWING NO DISTRESS. SKIN INTACT AND IV SITE INTACT
--- NOTE | 2025-01-10 13:34 | NUR ---
PATIENT STILL CONFUSED . RESTING IN BED WITH FAIMLY AT BED SIDE . TOLERATING IV TX WELL NO /C/O PAIN
[2025-01-10 15:14] VITALS: BP 133/67
--- NOTE | 2025-01-10 16:00 | NUR ---
PATIENT IS RESTING IN BEDD WITH AT BED SIDE HAS A SITTER WITH HIM . DID MUCH BETTER TODAY
--- NOTE | 2025-01-10 18:50 | NUR ---
PATIENT OBSERVED RESTING IN BED. ALERT AND ABLE TO MAKE NEEDS KNOWN. ASSESSMENT COMPLETE. NO DISTRESS NOTED. NO COMPLAINTS VOICED. ANSWERS APPROPRIATELY. DENIES NEEDING ANYTHING AT THIS TIME. BED IN LOW POSITION. CALL ALEXANDRE IN REACH. SITTER AT BEDSIDE FOR SAFETY.
[2025-01-10 18:55] VITALS: BP 159/89
--- NOTE | 2025-01-11 | NUR ---
PATIENT REMAINS RESTING IN BED WITH HOB ELEVATED. NO SIGNS OF DISTRESS OR PAIN. BED IN LOW POSITION. CALL ALEXANDRE IN REACH. SITTER REMAINS IN ROOM FOR SAFETY.
[2025-01-11 00:16] VITALS: BP 150/88
--- NOTE | 2025-01-11 03:51 | NUR ---
PATIENT REMAINS RESTING IN BED. NO DISTRESS NOTED. DENIES NEEDING ANYTHING AT THIS TIME. BED REMAINS IN LOW POSITION. CALL ALEXANDRE IN REACH. SITTER REMAINS AT BEDSIDE FOR SAFETY.
[2025-01-11 04:00] VITALS: BP 145/79
--- NOTE | 2025-01-11 05:56 | NUR ---
PATIENT WITH URINE OUTPUT TOTAL OF 150CC THIS SHIFT. NO COMPLAINTS OF DISCOMFORT. BLADDER SCANNED SHOWING GREATER THEN >600. PER PATIENT HE VOICED THAT HE IS SUPPOSED TO BE SELF CATHING TWICE A DAY BUT HASNT BECAUSE HE DOESNT WANT TOO. I MENTIONED TO PATIENT THAT WE MIGHT NEED TO GET ORDERS FROM PROVIDER TO CATH AND PATIENT REFUSED MULTIPLE TIMES WITH LPN OR MEDICAL ASSISTANT PRESENT TO HEAR. PATIENT WAS EDUCATED ON THE IMPORTANCE OF NOT HAVING A FULL BLADDER BUT STILL REFUSES AND VOICED HE WANTS TO RETRY VOIDING AGAIN SHORTLY ON HIS OWN. I DID CALL AND INFORM THE CANVASSING MANAGER WELL. I WILL UPDATE THE DAYSHIFT NURSE AND ALSO HAVE PROVIDER MADE AWARE.
--- NOTE | 2025-01-11 06:48 | NUR ---
NOTIFIED MD OF PATIENT RETAINING URINE AND WHAT BLADDER SCAN SHOWED. I ALSO INFORMED MD THAT PATIENT DOESNT WANT ANY TYPE OF CATHING DONE AT THIS TIME. MD VOICED HE WOULD SPEAK TO PATIENT.
[2025-01-11 07:35] VITALS: BP 153/90
--- NOTE | 2025-01-11 09:00 | NUR ---
PT ASSISTED WITH STRAIGHT CATH, 450CC CLEAR YELLOW URINE DRAINED FROM BLADDER, PT TOLERATED WELL, PT ASSISTED TO THE RECLINER AFTER, PT AMBULATED WITH A SLOW UNSTEDAY GAIT, SAFETY MEASURES REINFORCED, PT REMINDED TO CALL FOR ASSISTANCE, PT VERBALIZED UNDERSTANDING, CALL ALEXANDRE WITHIN REACH
[2025-01-11] MEDS ORDERED: AMLODIPINE BESYL5 MG PO (09:41)
[2025-01-11 11:14] VITALS: BP 125/74
--- NOTE | 2025-01-11 12:00 | NUR ---
PT SITTING IN THE RECLINER EATING LUNCH WITH , NO S/S OF DISTRESS AT THIS TIME, PT REMINDED TO CALL FOR ASSISTANCE, PT VERBALIZED UNDERSTANDING, CALL ALEXANDRE WITHIN REACH
--- NOTE | 2025-01-11 15:55 | NUR ---
SPOKE WITH JENA IN ADMISSIONS AT [facility] WILL HAVE A BED TOMORROW NOT TODAY. INFORMED DR HARRY RE: STATUS
[2025-01-11 16:03] VITALS: BP 175/98
[2025-01-11 18:44] VITALS: BP 159/89
--- NOTE | 2025-01-11 20:00 | NUR ---
RECEIVED REPORT FROM NURSE TORY, PATIENT ALERT TO NAME AND BIRTHDAY, STATED HE WAS AT [facility], PATIENT REORINETED, PLEASANT, IV INFUSING WELL ON LAC NS @ 100CC/HR, CLEAR LUNG SOUNDS, ON TELEMETRY, ACTIVE BOWEL SOUNDS, EDEMA NOTED +1 ON BILAT FOOT, OFFLOADED, MD AWARE, NEW ORDER TO DISCONTINUE FLUIDS, CALL LIGHT IN REACHED, SITTER AT BEDSIED FOR SAFETY.
--- NOTE | 2025-01-11 20:43 | NUR ---
PATIENT STRAIGHT CATH DONE, DRAINED 500CC CLEAR YELLOW URINE.
[2025-01-12] VITALS: BP 155/80
--- NOTE | 2025-01-12 | NUR ---
PATIENT RESTING IN BED, BREATHING UNLABORED, NOT IN DISTRESS, SITTER IN ROOM.
[2025-01-12 04:44] VITALS: BP 159/81
--- NOTE | 2025-01-12 05:05 | NUR ---
patinet resting in bed, breathing even unalbored, not in distress, patient on bed alarm.
--- NOTE | 2025-01-12 06:41 | NUR ---
PATIENT ASSISTED TO THE [facility] COMODE VOIDED 450CC JANNA URINE, PATIENT, ASSISTED BACK IN BED, PLACED BACK ON BED ALARM.
[2025-01-12 07:34] VITALS: BP 156/98
--- NOTE | 2025-01-12 07:39 | NUR ---
PATIENT SITTING UP IN BED, HAVING BREAKFAST. SITTER AT BEDSIDE. PATIENT DENIES ANY NEEDS WHEN ASKED AT THIS TIME.
[2025-01-12 11:24] VITALS: BP 161/88
--- NOTE | 2025-01-12 12:18 | NUR ---
PATIENT SITTING UP IN CHAIR, HAVING LUNCH. SITTER AND SPOUSE AT BEDSIDE. NO SIGNS OR SYMPTOMS OF PAIN OR DISTRESS NOTED.
--- NOTE | 2025-01-12 14:48 | NUR ---
Discharge instructions given. Patient verbalizes understanding of same. Discharged in stable condition via Wheelchair to ACLF with staff. All belongings sent with pt. IV REMOVED , TELE RETURNED
--- NOTE | 2025-01-12 14:50 | NUR ---
PATIENT WAS DISCHARED TO [facility] , TAKEN BY TRANSPORT , ESCORTED BY STAFF IN WHEEL CAHIR DOWN STAIRS AT 1445. IV AND TELE WAS REMOVED . PATIENTS' AND WAS GIVEN EDUCATION AND EXPLANTION OF THE MEDS AND DISCHARGE INSTRUCTIONS GIVEN BY DOCTOR. SHE UNDERSTOOD / HAD NO FUTHER QUESTIONS. ALL PERSONAL BELONGINGS WERE SENT WITH PATIENT AND .
--- NOTE | 2025-01-12 14:58 | NUR ---
CALLED IN REPORT TO [facility] AND SPOKE TO [facility] RECEIVING NURSE. GAVE REPORT AT [id number]
== END 2025-01-12 14:47 ==
LOC: ED 02:06 → ED-I 06:31 → ED 06:53 → MS2 06:54
PROVIDERS: Internal Medicine; Nurse Practitioner Family; ADMIT Internal Medicine; ATTEND Internal Medicine
DX: G93.40 Encephalopathy, unspecified (principal); N39.0 Urinary tract infection, site not specified; R25.1 Tremor, unspecified; E86.0 Dehydration; I95.1 Orthostatic hypotension; N17.9 Acute kidney failure, unspecified; I10 Essential (primary) hypertension; I48.91 Unspecified atrial fibrillation; R33.9 Retention of urine, unspecified; C88.00 Waldenstrom macroglobulinemia not having achieved remission; Z87.440 Personal history of urinary (tract) infections; Z86.73 Personal history of transient ischemic attack (TIA), and cerebral infarction without residual deficits; Z79.01 Long term (current) use of anticoagulants
CPT/HCPCS: G0378; J0360; J0696